=== PATIENT | female | born 1975 | race Two or more races ===

== ENCOUNTER 2017-07-24 05:38 | Day surgery (SDC) | payer OTHER ==
[~2017-07-24 05:38] MED LIST: XANAFLEX PO
== END 2017-07-24 17:15 | disposition home or self-care (01) ==
LOC: CIR.AMB 05:38
DX: N64.81 Ptosis of breast (principal)

== ENCOUNTER 2020-10-02 08:00 | Outpatient (CLI) | payer OTHER | END 2020-10-02 08:30 | disposition home or self-care (01) | LOC: PPH VACUNA 08:00 | DX: Z23 Encounter for immunization (principal) ==

== ENCOUNTER 2020-10-23 08:00 | Outpatient (CLI) | payer OTHER | END 2020-10-23 08:30 | disposition home or self-care (01) | LOC: PPH VACUNA 08:00 | DX: Z23 Encounter for immunization (principal) ==

== ENCOUNTER 2021-05-21 08:00 | Outpatient (CLI) | payer OTHER | END 2021-05-21 08:30 | disposition home or self-care (01) | LOC: PPH VACUNA 08:00 | PROVIDERS: ATTEND Emergency Medicine Pediatric Emergency Medicine | DX: Z23 Encounter for immunization (principal) ==

== ENCOUNTER 2022-03-15 17:46 | Emergency (ER) | payer OTHER ==
[~2022-03-15] VITALS: Ht 170.2 cm; Wt 72.1 kg
== END 2022-03-15 19:46 | disposition home or self-care (01) ==
LOC: ER 17:46
DX: M25.572 Pain in left ankle and joints of left foot (principal); M79.672 Pain in left foot

== ENCOUNTER 2022-10-10 08:43 | Outpatient (CLI) | payer OTHER | END 2022-10-10 08:49 | disposition home or self-care (01) | LOC: SONOGRAMA 08:43 | PROVIDERS: ATTEND Pathology Anatomic Pathology | DX: D34 Benign neoplasm of thyroid gland (principal); D44.0 Neoplasm of uncertain behavior of thyroid gland; E04.9 Nontoxic goiter, unspecified; E07.9 Disorder of thyroid, unspecified ==

== ENCOUNTER 2022-12-05 09:16 | Outpatient (CLI) | payer OTHER ==
[2023-01-13] MEDS ORDERED: ZANAFLEX4 MG PO (12:10)
== END 2022-12-05 09:18 | disposition home or self-care (01) ==
LOC: SONOGRAMA 09:16
PROVIDERS: ATTEND Pathology Anatomic Pathology & Clinical Pathology
DX: D44.0 Neoplasm of uncertain behavior of thyroid gland (principal); E07.9 Disorder of thyroid, unspecified

== ENCOUNTER 2023-01-18 06:52 | Day surgery (SDC) | payer OTHER ==
[~2023-01-18 06:52] MED LIST changes: +ZANAFLEX4 MG PO
[2023-01-18] MEDS ORDERED: PERCOCET 5-3251 EACH PO (13:07)
== END 2023-01-18 15:10 | disposition home or self-care (01) ==
LOC: CIR.AMB 06:52
PROVIDERS: ATTEND Surgery
DX: C73 Malignant neoplasm of thyroid gland (principal); E06.3 Autoimmune thyroiditis; Z20.822 Contact with and (suspected) exposure to COVID-19